=== PATIENT | male | born 1960 | race Caucasian/White ===

== ENCOUNTER 2017-11-15 10:22 | Emergency (ER) | payer OTHER ==
[~2017-11-15] VITALS: Ht 180.3 cm; Wt 95.3 kg
[2017-11-15 10:30] VITALS: BP 141/94
--- NOTE | 2017-11-15 10:53 | PHYS DOC ---
Past History Past Medical History: Hypertension Past Surgical History: Other Smoking: Non-smoker Alcohol Use: Occasionally Drug Use: None Adult General Chief Complaint Chief Complaint: HAND PROBLEM HPI HPI 57-year-old right-handed male patient with he dropped a 200 pound steel on his right hand 3 days ago at home and smashed his hand. Patient states he has pain and swelling that did not get better with taking the ibuprofen and applying ice on his hand. Patient states the pain is moderate and getting worse with movement of his fingers and denies focal neuro deficit and other injuries. Review of Systems Review of Systems Constitutional: Denies fever or chills [] Eyes: Denies change in visual acuity, redness, or eye pain [] HENT: Denies nasal congestion or sore throat [] Respiratory: Denies cough or shortness of breath [] Cardiovascular: No additional information not addressed in HPI [] GI: Denies abdominal pain, nausea, vomiting, bloody stools or diarrhea [] : Denies dysuria or hematuria [] Musculoskeletal: Denies back pain, reports extremity and joint pain [] Integument: Denies rash or skin lesions [] Neurologic: Denies headache, focal weakness or sensory changes [] Endocrine: Denies polyuria or polydipsia [] All other systems were reviewed and found to be within normal limits, except as documented in this note. Allergies Allergies Allergies Coded Allergies Type Severity Reaction Last Updated Verified No Known Drug Allergies 11/15/17 No Physical Exam Physical Exam Constitutional: Well developed, well nourished, mild distress, non-toxic appearance. [] HENT: Normocephalic, atraumatic Eyes: PERRLA, EOMI, conjunctiva normal, no discharge. [] Neck: Normal range of motion, no tenderness, supple, no stridor. [] Cardiovascular:Heart rate regular rhythm, no murmur [] Lungs & Thorax: Bilateral breath sounds clear to auscultation [] Extremities: Right hand with moderate edema and tenderness in fifth metacarpal area without neurovascular deficit Neurologic: Alert and oriented X 3, normal motor function, normal sensory function, no focal deficits noted. [] Psychologic: Affect normal, judgement normal, mood normal. [] Current Patient Data Vital Signs Vital Signs Date Time Temp Pulse Resp B/P (MAP) Pulse Ox O2 Delivery O2 Flow Rate FiO2 11/15/17 10:30 68 22 96 Room Air EKG EKG [] Radiology/Procedures Radiology/Procedures [] [address] [id number] IMAGING REPORT Signed PATIENT: CARLOS SAAVEDRA ACCOUNT: [id number] : 1960 LOCATION: ER AGE: 57 SEX: M EXAM STATUS: REG ER ORD. PHYSICIAN: BERNADETTE RUBIN MD REASON: injury PROCEDURE: HAND RIGHT 3V Right hand, 3 views, 11/15/2017: HISTORY: Injury There is a fracture of the distal fifth metacarpal with mild volar angulation of the distal fracture fragment. There is no significant displacement. There is moderate overlying soft tissue swelling. No other fracture or dislocation is evident. IMPRESSION: Acute distal fifth metacarpal fracture Electronically signed by: Dimas Dick MD (11/15/2017 11:02 AM) [facility] [place] DICTATED AND SIGNED BY: DIMAS DICK MD DATE: 11/15/17 1105 CC: LALY PRITCHARD; BERNADETTE RUBIN MD ~ Course & Med Decision Making Course & Med Decision Making Pertinent Imaging studies reviewed. (See chart for details) Additional patient in ER showed 57-year-old male patient with fracture of fifth metacarpal area. Ulnar gutter splint was applied by [employer] with good cap refill and alignment. Patient instructed to follow-up with project economist orthopedic physician. [] Dragon Disclaimer Dragon Disclaimer This electronic medical record was generated, in whole or in part, using a voice recognition dictation system. Departure Departure: Impression: Primary Impression: Fracture of fifth metacarpal bone Disposition: HOME, SELF-CARE (At 1130) Condition: IMPROVED Referrals: LALY PRITCHARD (PCP) Patient Instructions: Hand Fracture, Metacarpals Additional Instructions: Apply ice on the affected area Follow-up with your primary care physician in 3-5 days Return to ER if not getting better Follow-up with on-call orthopedic physician Dr. Mac, call at [phone] in 1 or 2 days to make an appointment Scripts Ibuprofen (IBUPROFEN) 800 Mg Tablet 1 TAB PO TID, #30 TAB Prov: BERNADETTE RUBIN MD 11/15/17 BERNADETTE RUBIN MD November 15, 2017 10:53
--- NOTE | 2017-11-15 11:05 | RAD ---
Right hand, 3 views, 11/15/2017: HISTORY: Injury There is a fracture of the distal fifth metacarpal with mild volar angulation of the distal fracture fragment. There is no significant displacement. There is moderate overlying soft tissue swelling. No other fracture or dislocation is evident. IMPRESSION: Acute distal fifth metacarpal fracture Electronically signed by: Dimas Dick MD (11/15/2017 11:02 AM) [facility]
[2017-11-15] MEDS ORDERED: IBUP800T19 PO (11:29)
== END 2017-11-15 11:45 | disposition home or self-care (01) ==
LOC: ER 10:22
DX: S62.396A Other fracture of fifth metacarpal bone, right hand, initial encounter for closed fracture (principal); I10 Essential (primary) hypertension; W20.8XXA Other cause of strike by thrown, projected or falling object, initial encounter; Y93.89 Activity, other specified; Y99.8 Other external cause status; Y92.89 Other specified places as the place of occurrence of the external cause
CPT/HCPCS: 29125; 73130; 99284

== ENCOUNTER → 2019-05-19 | Outpatient (CLI) | payer OTHER ==
[~2019-05-19] MED LIST: IBUP800T19 PO
--- NOTE | 2019-05-19 08:01 | RAD ---
Three-view left knee study Clinical indications: Left knee pain. FINDINGS: No acute fracture or dislocation or lytic process is seen. No significant arthritic change is evident. No left knee joint effusion is seen. IMPRESSION: No significant osseous abnormality. Electronically signed by: Conor Jonas MD (05/19/2019 7:58 AM) [facility]
== END | disposition home or self-care (01) ==
LOC: RAD 06:44
PROVIDERS: ATTEND Family Medicine
DX: M25.562 Pain in left knee (principal)
CPT/HCPCS: 73562